=== PATIENT | female | born 1980 | race African-American/Black ===

== ENCOUNTER 2019-12-22 11:01 | Emergency (ER) | payer BC ==
[~2019-12-22] VITALS: Ht 162.6 cm; Wt 85.7 kg
[2019-12-22 11:15] VITALS: BP 135/85
[2019-12-22 11:47] LABS: Eosinophils # (auto) 0.1 uL; Mean Corpuscular Hgb Conc. 32.4 g/dL (32.0-36.0); Monocytes # (auto) 0.3 uL; Neutrophils # (auto) 1.9 uL; White Blood Cell 3.9 10^3/uL (4.4-10.8)
[2019-12-22 11:48] LABS: Urine Bacteria NONE SEEN /hpf (None Seen); Urine Blood Negative /uL (Negative); Urine Specific Gravity 1.009 (1.001-1.035); Urine WBC <1 /hpf (0 - 5)
[2019-12-22 11:50] LABS: Basophils # (auto) 0 uL; Basophils % (auto) 1.1 % (0.0-2.0); Hematocrit 35.2 % (36.0-46.0); Hemoglobin 11.4 g/dL (12.2-16.2); Lymphocytes # (auto) 1.6 uL; Lymphocytes % (auto) 40.5 % (10.0-50.0); Mean Corpuscular Hemoglobin 24.1 pg (28.0-32.0); Mean Corpuscular Volume 74.5 fL (80.0-100.0); Monocytes % (auto) 7.5 % (0.0-12.0); Neutrophils % (auto) 47.9 % (37.0-80.0); Nucleated Red Blood Cells % 0.2 %; Platelet Count (auto) 281 10^3/uL (140-450); Red Blood Cells 4.73 10^6/uL (4.0-5.20); Red Cell Distribution Width 19.6 % (11.8-14.3)
[2019-12-22 12:05] LABS: Albumin 3.8 g/dL (3.4-5.0); Calcium 9.3 mg/dL (8.5-10.1); Potassium 4.4 mmol/L (3.5-5.1)
[2019-12-22 12:10] LABS: BUN/Creatinine Ratio 12.9; Bilirubin, Total 0.5 mg/dL (0.2-1.0); Total Protein 8.1 g/dL (6.4-8.2)
== END 2019-12-22 14:01 | disposition home or self-care (01) ==
LOC: ER 11:01
DX: D25.9 Leiomyoma of uterus, unspecified (principal); Z98.51 Tubal ligation status
CPT/HCPCS: 36415; 74176; 80053; 81001; 81025; 83690; 85025